=== PATIENT | male | born 1970 | race Caucasian/White ===

== ENCOUNTER 2017-07-14 11:52 | Emergency (ER) | payer BC ==
[2017-07-14] MEDS ORDERED: Sodium Chloride 0.9% 10 ML Syringe FLUSH PRN (13:38)
[2017-07-14] MEDS ORDERED: Aspirin 81 MG Tab.Chew PO ONE (13:38)
--- NOTE | 2017-07-14 13:54 | EDM.PDOC ---
ED HPI GENERAL MEDICAL PROBLEM - General Chief Complaint: Chest Pain Stated Complaint: CHEST PAIN OFF & ON (NEW MED?) Time Seen by Provider: 07/14/17 13:20 Source of Information: Reports: Patient, Family History Limitations: Reports: No Limitations - History of Present Illness INITIAL COMMENTS - FREE TEXT/NARRATIVE: Chip presents today with complaints of intermittent left sided chest pain since start of propranolol July. He reports diaphroesis , nausea with the dull and tight type pain. He also reports he develops soreness to his neck at times with it. - Related Data Allergies Allergy/AdvReac Type Severity Reaction Status Date / Time No Known Allergies Allergy Verified 07/14/17 12:57 Home Meds: Home Meds Levothyroxine 50 mcg PO DAILY 06/09/16 [History] Sertraline [Zoloft] 150 mg PO DAILY 06/09/16 [History] Testosterone Enanthate [Delatestryl] 600 mg IM ASDIRECTED 06/09/16 [History] buPROPion HCl [Wellbutrin SR] 150 mg PO BID 06/09/16 [History] Propranolol HCl [Propranolol HCl] 2 tab PO BID 07/14/17 [History] Past Medical History HEENT History: Reports: Hard of Hearing Respiratory History: Reports: Asthma Other Respiratory History: pneumonia Gastrointestinal History: Reports: Other (See Below) Other Gastrointestinal History: blood in stool Musculoskeletal History: Reports: Arthritis, Fracture Psychiatric History: Reports: Anxiety, Depression Endocrine/Metabolic History: Reports: Diabetes, Type II, Hypothyroidism, Other ( See Below) Other Endocrine/Metabolic History: Catalino's disease Immunologic History: Reports: Other (See Below) Other Immunologic History: catalino's disease Dermatologic History: Reports: Other (See Below) Other Dermatologic History: hidradenitis suppurativa-currently in remission - Infectious Disease History Infectious Disease History: Reports: Chicken Pox 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 - Past Surgical History HEENT Surgical History: Reports: Myringotomy w Tube(s), Tonsillectomy Social & Family History - Tobacco Use Smoking Status *Q: Never Smoker Years of Tobacco use: 30 Packs/Tins Daily: 0.5 Second Hand Smoke Exposure: No - Alcohol Use Days Per Week of Alcohol Use: 5 Number of Drinks Per Day: 6 Total Drinks Per Week: 30 - Recreational Drug Use Recreational Drug Use: Yes Drug Use in Last 12 Months: Yes Recreational Drug Type: Reports: Marijuana/Hashish Recreational Drug Use Frequency: Socially ED ROS GENERAL - Review of Systems Review Of Systems: See Below Constitutional: Reports: Diaphoresis. Denies: Fever, Chills, Malaise, Weakness HEENT: Reports: No Symptoms Respiratory: Reports: Shortness of Breath. Denies: Wheezing, Cough, Sputum, Hemoptysis Cardiovascular: Reports: Chest Pain, Dyspnea on Exertion. Denies: Blood Pressure Problem, Edema, Lightheadedness, Orthopnea, Palpitations, PND, Syncope Endocrine: Reports: No Symptoms GI/Abdominal: Reports: No Symptoms : Reports: No Symptoms Musculoskeletal: Reports: Neck Pain, Other (intermittently with chest pain) Skin: Reports: No Symptoms Neurological: Reports: No Symptoms Psychiatric: Reports: No Symptoms Hematologic/Lymphatic: Reports: No Symptoms Immunologic: Reports: No Symptoms ED EXAM, GENERAL - Physical Exam Exam: See Below Free Text/Narrative:: Chip is an alert, oriented and pleasant 47 year old male presenting with intermittent chest pain since the start of propranolol 40mg PO BID 48 hours ago. Pain is tight, dull and to left chest accompanied by diaphroesis, nausea and sore neck. He has not taken any aspirin. History of essential tremor, diabetes mellitus type two, Catalino, use of testosterone IM. Daily caffeine use of 2 or more diet mountain dew, energy drink or coffee. Exam Limited By: No Limitations General Appearance: Alert, WD/WN, Mild Distress Eye Exam: Bilateral Eye: EOMI, Normal Inspection, PERRL Ears: Normal External Exam, Normal Canal, Hearing Grossly Normal, Normal TMs Ear Exam: Bilateral Ear: Auricle Normal, Canal Normal, TM normal Nose: Normal Inspection, Normal Mucosa, No Blood Throat/Mouth: Normal Inspection, Normal Lips, Normal Oropharynx, Normal Voice, No Airway Compromise Head: Atraumatic, Normocephalic Neck: Normal Inspection, Supple, Non-Tender, Full Range of Motion. No: Lymphadenopathy (R), Lymphadenopathy (L) Respiratory/Chest: No Respiratory Distress, Lungs Clear, Normal Breath Sounds, No Accessory Muscle Use, Chest Non-Tender Cardiovascular: Normal Peripheral Pulses, Regular Rate, Rhythm, No Edema, No Murmur, Other (EKG Sinus Frequent PVCs without pattern) Peripheral Pulses: 2+: Carotid (L), Carotid (R), Radial (L), Radial (R), Dorsalis Pedis (L), Dorsalis Pedis (R) GI/Abdominal: Normal Bowel Sounds, Soft, Non-Tender, No Distention, No Mass Back Exam: Normal Inspection, Full Range of Motion. No: CVA Tenderness (R), CVA Tenderness (L) Extremities: Normal Inspection, Normal Range of Motion, Non-Tender, No Pedal Edema, Normal Capillary Refill Neurological: Alert, Oriented, CN II-XII Intact, Normal Cognition, Normal Gait, Normal Reflexes, No Motor/Sensory Deficits Psychiatric: Normal Affect, Normal Mood Skin Exam: Warm, No Rash, Diaphoretic, Other (Flushed to head, chest, upper arms ) Lymphatic: No Adenopathy Course - Vital Signs Last Recorded V/S: Last Vital Signs Temp 36.9 C 07/14/17 12:50 Pulse 64 07/14/17 13:50 Resp 14 07/14/17 13:20 BP 127/75 07/14/17 13:50 Pulse Ox 96 07/14/17 13:50 - Orders/Labs/Meds Orders: Active Orders 24 hr Category Date Time Status EKG Documentation Completion [RC] ASDIRECTED Care 07/14/17 13:20 Active Chest 2V [CR] Stat Exams 07/14/17 13:39 Taken Sodium Chloride 0.9% [Saline Flush] Med 07/14/17 13:38 Active 10 ml FLUSH ASDIRECTED PRN Saline Lock Insert [OM.PC] Routine Oth 07/14/17 13:38 Ordered EKG 12 Lead [EK] Routine Ther 07/14/17 13:20 Ordered Medication Orders Sodium Chloride (Saline Flush) 10 ml FLUSH ASDIRECTED PRN PRN Reason: Keep Vein Open Last Admin: 07/14/17 14:02 Dose: 10 ml Labs: Laboratory Tests 07/14/17 07/14/17 07/14/17 Range/Units 13:49 13:49 13:49 WBC 6.6 (4.5-11.0) K/uL RBC 5.32 (4.30-5.90) M/uL Hgb 16.6 H (12.0-15.0) g/dL Hct 48.7 (40.0-54.0) % MCV 92 (80-98) fL MCH 31 (27-31) pg MCHC 34 (32-36) % Plt Count 221 (150-400) K/uL Neut % (Auto) 66 (36-66) % Lymph % (Auto) 22 L (24-44) % [place] % (Auto) 10 H (2-6) % Eos % (Auto) 2 (2-4) % Baso % (Auto) 0 (0-1) % Sodium 140 (140-148) mmol/L Potassium 4.3 (3.6-5.2) mmol/L Chloride 107 (100-108) mmol/L Carbon Dioxide 27 (21-32) mmol/L Anion Gap 6.5 (5.0-14.0) mmol/L BUN 24 H (7-18) mg/dL Creatinine 1.2 (0.8-1.3) mg/dL Est Cr Clr Drug Dosing 82.63 mL/min Estimated GFR (MDRD) > 60 (>60) Glucose 111 H (74-106) mg/dL Calcium 8.6 (8.5-10.1) mg/dL Total Bilirubin 0.2 (0.2-1.0) mg/dL AST 33 (15-37) U/L ALT 70 (12-78) U/L Alkaline Phosphatase 84 (46-116) U/L Troponin I < 0.017 (0.000-0.056) ng/mL Total Protein 7.1 (6.4-8.2) g/dL Albumin 3.7 (3.4-5.0) g/dL Globulin 3.4 (2.3-3.5) g/dL Albumin/Globulin Ratio 1.1 L (1.2-2.2) TSH, Ultra Sensitive 2.278 (0.358-3.740) uIU/mL Lab work reviewed. Meds: Medications Generic Name Dose Route Start Last Admin Trade Name Freq PRN Reason Stop Dose Admin Sodium Chloride 10 ml 07/14/17 13:38 07/14/17 14:02 Saline Flush FLUSH 10 ml ASDIRECTED PRN Administration Keep Vein Open Discontinued Medications Generic Name Dose Route Start Last Admin Trade Name Freq PRN Reason Stop Dose Admin Aspirin 324 mg 07/14/17 13:38 07/14/17 13:58 Aspirin PO 07/14/17 13:39 324 mg ONETIME ONE Administration - Radiology Interpretation Free Text/Narrative:: Chest x-ray wet read, no acute findings. Radiologist read pending. - Re-Assessments/Exams Free Text/Narrative Re-Assessment/Exam: 07/14/17 15:15 Patient case, lab work and EKG findings reviewed with Dr. Mccord. Patient will be discharged to home with follow up to his primary provider on Sunday. Patient and in agreement with plan. Departure - Departure Time of Disposition: 15:22 Disposition: Home, Self-Care 01 Condition: Good Clinical Impression: Atypical chest pain, Medication side effect Referrals: Roberto Diamond PA-C [Primary Care Provider] - Forms: ED Department Discharge Additional Instructions: You have been treated for left sided chest pain in the emergency room today. You have had flushing of the head and chest as well as sweating with these episodes that have occurred with the use of propranalol. All your lab work was negative for cardiac injury or significant finding. EKG and chest x-ray reviewed. EKG was normal sinus with irregular frequent PVCs. Chest x-ray was normal. It would be best for you to stop use of caffeine. Do not discontinue use of propranalol until you see your primary provider on Sunday July 16, 2017. You may take acetaminophen or ibuprofen for pain if needed. Return for worsening, SOB, issues or concerns. It may be in your best interest to complete a stress test in the future. - My Orders Last 24 Hours: My Active Orders 07/14/17 13:20 EKG Documentation Completion [RC] ASDIRECTED EKG 12 Lead [EK] Routine 07/14/17 13:38 Sodium Chloride 0.9% [Saline Flush] 10 ml FLUSH ASDIRECTED PRN Saline Lock Insert [OM.PC] Routine 07/14/17 13:39 Chest 2V [CR] Stat - Assessment/Plan Last 24 Hours: My Active Orders 07/14/17 13:20 EKG Documentation Completion [RC] ASDIRECTED EKG 12 Lead [EK] Routine 07/14/17 13:38 Sodium Chloride 0.9% [Saline Flush] 10 ml FLUSH ASDIRECTED PRN Saline Lock Insert [OM.PC] Routine 07/14/17 13:39 Chest 2V [CR] Stat Assessment:: Atypical chest pain Side effect of medication - propranalol Plan: Patient has been treated for left sided chest pain in the emergency room today. He has had flushing of the head and chest as well as sweating with these episodes that have occurred with the use of propranalol. All lab work was negative for cardiac injury or significant finding. EKG and chest x-ray reviewed. EKG was normal sinus with irregular frequent PVCs. Chest x-ray was normal. It would be best for patient to stop use of caffeine. Do not discontinue use of propranalol until he sees his primary provider on Sunday July 16, 2017. He may take acetaminophen or ibuprofen for pain if needed. Return for worsening, SOB, issues or concerns. It may be in his best interest to complete a stress test in the future.
[2017-07-14 14:15] VITALS: BP 127/75
--- NOTE | 2017-07-16 09:55 | CR ---
Chest 2V INDICATION: chest pain, dyspnea at times. FINDINGS: Ill-defined 18 mm density projected over the posterior right seventh rib is indeterminant. Comparison with any available old outside chest x-rays or noncontrast chest CT recommended. Exam othe rwise negative.
== END 2017-07-14 15:45 | disposition home or self-care (01) ==
LOC: JP.ED 11:52
DX: R07.89 Other chest pain (principal); T44.7X5A Adverse effect of beta-adrenoreceptor antagonists, initial encounter; J45.909 Unspecified asthma, uncomplicated; F32.9 Major depressive disorder, single episode, unspecified; E11.9 Type 2 diabetes mellitus without complications; E03.9 Hypothyroidism, unspecified; Z96.22 Myringotomy tube(s) status; Z98.890 Other specified postprocedural states; Z79.899 Other long term (current) drug therapy
CPT/HCPCS: 36415; 71020; 80053; 84443; 84484; 85025; 93005; 99285; A9270; J7050

== ENCOUNTER 2020-04-16 11:56 | Emergency (ER) | payer BC ==
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
[2020-04-16 12:17] VITALS: BP 142/124; PULSE 71
== END 2020-04-16 13:19 | disposition home or self-care (01) ==
LOC: JP.ED 11:56
DX: F10.129 Alcohol abuse with intoxication, unspecified (principal); J45.909 Unspecified asthma, uncomplicated; M19.90 Unspecified osteoarthritis, unspecified site; F41.9 Anxiety disorder, unspecified; F32.9 Major depressive disorder, single episode, unspecified; E11.9 Type 2 diabetes mellitus without complications; E03.9 Hypothyroidism, unspecified; E06.3 Autoimmune thyroiditis; Z88.8 Allergy status to other drugs, medicaments and biological substances; Z79.899 Other long term (current) drug therapy
CPT/HCPCS: 36415; 80048; 80307; 85025; 99282; 99284

== ENCOUNTER 2020-04-17 04:59 | Emergency (ER) | payer BC ==
[2020-04-17] MEDS ORDERED: ClonazePAM 0.5 MG Tab PO ONE (05:19)
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
[2020-04-17 05:34] VITALS: BP 139/87; PULSE 78
== END 2020-04-17 05:37 | disposition home or self-care (01) ==
LOC: JP.ED 04:59
DX: R07.9 Chest pain, unspecified (principal); G89.29 Other chronic pain; F32.9 Major depressive disorder, single episode, unspecified; E11.9 Type 2 diabetes mellitus without complications; E03.9 Hypothyroidism, unspecified; Z88.8 Allergy status to other drugs, medicaments and biological substances; Z79.899 Other long term (current) drug therapy
CPT/HCPCS: 99285; A9270; 99283

== ENCOUNTER 2021-01-06 10:20 | Emergency (ER) | payer BC ==
--- NOTE | 2021-01-06 11:28 | EDM.PDOC ---
ED HPI GENERAL MEDICAL PROBLEM - General Chief Complaint: Neuro Symptoms/Deficits Stated Complaint: REACTION Time Seen by Provider: 01/06/21 10:50 Source of Information: Reports: Patient History Limitations: Reports: No Limitations - History of Present Illness INITIAL COMMENTS - FREE TEXT/NARRATIVE: 50-year-old male with a chronic myoclonic jerking disorder, no diagnosed seizure disorder per his neurologist. Recently increased Lamictal and the patient feels it is causing him more symptoms. Onset: Unknown/Unsure Associated Symptoms: Reports: No Other Symptoms - Related Data Allergies Allergy/AdvReac Type Severity Reaction Status Date / Time propranolol Allergy Severe Chest Pain Verified 01/06/21 10:28 Home Meds: Home Meds Levothyroxine 50 mcg PO DAILY 06/09/16 [History] Testosterone Enanthate [Delatestryl] 600 mg IM ASDIRECTED 06/09/16 [History] clonazePAM [Clonazepam] 2 mg PO TID 04/16/20 [History] Aspirin [Adult Low Dose Aspirin EC] 81 mg PO DAILY 01/06/21 [History] Sildenafil Citrate [Viagra] 50 - 100 mg PO ASDIRECTED 01/06/21 [History] lamoTRIgine [Lamotrigine] 100 mg PO TID 01/06/21 [History] Past Medical History HEENT History: Reports: Hard of Hearing Other Cardiovascular History: irregular heart rhythm Respiratory History: Reports: Asthma Other Respiratory History: pneumonia Gastrointestinal History: Reports: Other (See Below) Other Gastrointestinal History: blood in stool Musculoskeletal History: Reports: Arthritis, Fracture Neurological History: Reports: Seizure Psychiatric History: Reports: Anxiety, Depression Endocrine/Metabolic History: Reports: Diabetes, Type II, Hypothyroidism, Other (See Below) Other Endocrine/Metabolic History: Americo's disease Immunologic History: Reports: Other (See Below) Other Immunologic History: americo's disease Dermatologic History: Reports: Other (See Below) Other Dermatologic History: hidradenitis suppurativa-currently in remission - Infectious Disease History Infectious Disease History: Reports: Chicken Pox 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 - Past Surgical History HEENT Surgical History: Reports: Myringotomy w Tube(s), Tonsillectomy Social & Family History - Tobacco Use Tobacco Use Status *Q: Former Tobacco User Used Tobacco, but Quit: No - Caffeine Use Caffeine Use: Reports: Energy Drinks - Recreational Drug Use Recreational Drug Use: No Other Recreational Drug Type: uses medical cannabis ED ROS GENERAL - Review of Systems Review Of Systems: See Below Constitutional: Denies: Fever, Chills HEENT: Denies: Vision Change Respiratory: Denies: Shortness of Breath Cardiovascular: Denies: Chest Pain GI/Abdominal: Denies: Nausea, Vomiting Neurological: Denies: Headache, Paresthesia Psychiatric: Reports: Anxiety ED EXAM, GENERAL - Physical Exam Exam: See Below Exam Limited By: No Limitations General Appearance: Alert, Anxious Head: Atraumatic Respiratory/Chest: No Respiratory Distress, Lungs Clear Cardiovascular: Regular Rate, Rhythm. No: Extra Beats Neurological: Alert, Oriented, Other (Frequent nonsymmetric myoclonic jerks with occasional verbal output versus which have no pattern) Psychiatric: Anxious Skin Exam: Warm, Dry Course - Vital Signs Last Recorded V/S: Last Vital Signs Temp Pulse 56 L 01/06/21 12:28 Resp 20 01/06/21 12:28 BP Pulse Ox 98 01/06/21 12:28 - Orders/Labs/Meds Labs: Laboratory Tests 01/06/21 01/06/21 01/06/21 Range/Units 10:34 10:44 10:44 WBC 6.3 (4.5-11.0) K/uL RBC 4.99 (4.30-5.90) M/uL Hgb 15.8 H (12.0-15.0) g/dL Hct 47.7 (40.0-54.0) % MCV 96 (80-98) fL MCH 32 H (27-31) pg MCHC 33 (32-36) % Plt Count 229 (150-400) K/uL Neut % (Auto) 75 H (36-66) % Lymph % (Auto) 20 L (24-44) % [place] % (Auto) 4 (2-6) % Eos % (Auto) 0 L (2-4) % Baso % (Auto) 0 (0-1) % Sodium 143 (140-148) mmol/L Potassium 4.1 (3.6-5.2) mmol/L Chloride 103 (100-108) mmol/L Carbon Dioxide 25 (21-32) mmol/L Anion Gap 15.1 H (5.0-14.0) mmol/L BUN 11 (7-18) mg/dL Creatinine 1.3 (0.8-1.3) mg/dL Est Cr Clr Drug Dosing 73.79 mL/min Estimated GFR (MDRD) 58 L (>60) Glucose 124 H (74-106) mg/dL Calcium 9.4 (8.5-10.1) mg/dL Total Bilirubin 0.4 D (0.2-1.0) mg/dL AST 32 (15-37) U/L ALT 44 (12-78) U/L Alkaline Phosphatase 70 (46-116) U/L Total Protein 7.4 (6.4-8.2) g/dL Albumin 4.4 (3.4-5.0) g/dL Globulin 3.0 (2.3-3.5) g/dL Albumin/Globulin Ratio 1.5 (1.2-2.2) Urine Opiates Screen Negative (NEGATIVE) Ur Oxycodone Screen Negative (NEGATIVE) Urine Methadone Screen Negative (NEGATIVE) Ur Propoxyphene Screen Negative (NEGATIVE) Ur Barbiturates Screen Negative (NEGATIVE) Ur Tricyclics Screen Negative (NEGATIVE) Ur Phencyclidine Scrn Negative (NEGATIVE) Ur Amphetamine Screen Negative (NEGATIVE) U Methamphetamines Scrn Negative (NEGATIVE) Urine MDMA Screen Negative (NEGATIVE) U Benzodiazepines Scrn Negative (NEGATIVE) U Cocaine Metab Screen Negative (NEGATIVE) U Marijuana (THC) Screen Presumptive positive H (NEGATIVE) Ethyl Alcohol mg/dL 01/06/21 Range/Units 10:44 WBC (4.5-11.0) K/uL RBC (4.30-5.90) M/uL Hgb (12.0-15.0) g/dL Hct (40.0-54.0) % MCV (80-98) fL MCH (27-31) pg MCHC (32-36) % Plt Count (150-400) K/uL Neut % (Auto) (36-66) % Lymph % (Auto) (24-44) % [place] % (Auto) (2-6) % Eos % (Auto) (2-4) % Baso % (Auto) (0-1) % Sodium (140-148) mmol/L Potassium (3.6-5.2) mmol/L Chloride (100-108) mmol/L Carbon Dioxide (21-32) mmol/L Anion Gap (5.0-14.0) mmol/L BUN (7-18) mg/dL Creatinine (0.8-1.3) mg/dL Est Cr Clr Drug Dosing mL/min Estimated GFR (MDRD) (>60) Glucose (74-106) mg/dL Calcium (8.5-10.1) mg/dL Total Bilirubin (0.2-1.0) mg/dL AST (15-37) U/L ALT (12-78) U/L Alkaline Phosphatase (46-116) U/L Total Protein (6.4-8.2) g/dL Albumin (3.4-5.0) g/dL Globulin (2.3-3.5) g/dL Albumin/Globulin Ratio (1.2-2.2) Urine Opiates Screen (NEGATIVE) Ur Oxycodone Screen (NEGATIVE) Urine Methadone Screen (NEGATIVE) Ur Propoxyphene Screen (NEGATIVE) Ur Barbiturates Screen (NEGATIVE) Ur Tricyclics Screen (NEGATIVE) Ur Phencyclidine Scrn (NEGATIVE) Ur Amphetamine Screen (NEGATIVE) U Methamphetamines Scrn (NEGATIVE) Urine MDMA Screen (NEGATIVE) U Benzodiazepines Scrn (NEGATIVE) U Cocaine Metab Screen (NEGATIVE) U Marijuana (THC) Screen (NEGATIVE) Ethyl Alcohol < 3 mg/dL - Re-Assessments/Exams Free Text/Narrative Re-Assessment/Exam: 01/06/21 11:42 After a long discussion with his neurologist who knows him well, he recommended decreasing his Lamictal back to his previous dose of 2 pills 3 times a day. He can take some extra Klonopin in the short-term. Patient agreed with the plan and will try that through the weekend and recheck next week if not improving. Departure - Departure Time of Disposition: 11:44 Disposition: Home, Self-Care 01 Clinical Impression: Myoclonic disorder - Discharge Information Instructions: Myoclonus Referrals: PCP,None [Primary Care Provider] - Forms: ED Department Discharge Care Plan Goals: Decrease your lamotrigine as discussed, and try this through the weekend. Contact your provider next week if not improving satisfactorily. Sepsis Event Note (ED) - Focused Exam Vital Signs: Vital Signs Pulse Resp Pulse Ox 01/06/21 12:28 56 L 20 98 01/06/21 12:26 56 L 20 98
[2021-01-06 13:34] VITALS: PULSE 56
== END 2021-01-06 11:43 | disposition home or self-care (01) ==
LOC: JP.ED 10:20
DX: G25.3 Myoclonus (principal)
CPT/HCPCS: 36415; 80053; 80305-QW; 80307; 85025; 99282; 99283

== ENCOUNTER 2021-06-04 12:38 | Emergency (ER) | payer BC ==
[2021-06-04 13:04] VITALS: BP 108/71; PULSE 78
--- NOTE | 2021-06-04 13:36 | EDM.PDOC ---
ED HPI GENERAL MEDICAL PROBLEM - General Chief Complaint: General Stated Complaint: OUT OF MEDICATION Time Seen by Provider: 06/04/21 13:05 Source of Information: Reports: Patient History Limitations: Reports: No Limitations - History of Present Illness INITIAL COMMENTS - FREE TEXT/NARRATIVE: 51 yo presents to the ER with need for a refill on his Clonazepam. He has recently refilled this medication from his PCP and is unable to find the 180 tablets. In review of [place] [facility] physician he has consistently refilled his prescribed amount for the last year without extra refills. He is very anxious with the anticipation of going without medication fro the weekend. He has no other complaints. - Related Data Allergies Allergy/AdvReac Type Severity Reaction Status Date / Time propranolol Allergy Severe Chest Pain Verified 06/04/21 12:57 Home Meds: Home Meds Testosterone Enanthate [Delatestryl] 600 mg IM ASDIRECTED 06/09/16 [History] clonazePAM [Clonazepam] 2 mg PO TID 04/16/20 [History] Aspirin [Adult Low Dose Aspirin EC] 81 mg PO DAILY 01/06/21 [History] Sildenafil Citrate [Viagra] 50 - 100 mg PO ASDIRECTED 01/06/21 [History] lamoTRIgine [Lamotrigine] 75 mg PO TID 01/06/21 [History] Past Medical History HEENT History: Reports: Hard of Hearing Cardiovascular History: Reports: Arrhythmia Other Cardiovascular History: irregular heart rhythm Respiratory History: Reports: Asthma Other Respiratory History: pneumonia Gastrointestinal History: Reports: Other (See Below) Other Gastrointestinal History: blood in stool Musculoskeletal History: Reports: Arthritis, Fracture Neurological History: Reports: Seizure Psychiatric History: Reports: Anxiety, Depression Endocrine/Metabolic History: Reports: Diabetes, Type II, Hypothyroidism, Other (See Below) Other Endocrine/Metabolic History: Americo's disease, low testosterone Immunologic History: Reports: Other (See Below) Other Immunologic History: americo's disease Dermatologic History: Reports: Other (See Below) Other Dermatologic History: hidradenitis suppurativa-currently in remission - Infectious Disease History Infectious Disease History: Reports: Chicken Pox 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 - Past Surgical History HEENT Surgical History: Reports: Myringotomy w Tube(s), Tonsillectomy Social & Family History - Tobacco Use Tobacco Use Status *Q: Light Tobacco User Years of Tobacco use: 30 Packs/Tins Daily: 0.5 - Caffeine Use Caffeine Use: Reports: Coffee - Recreational Drug Use Recreational Drug Use: No ED ROS GENERAL - Review of Systems Review Of Systems: See Below Constitutional: Denies: Fever Respiratory: Denies: Shortness of Breath Cardiovascular: Denies: Chest Pain ED EXAM, GENERAL - Physical Exam Exam: See Below Exam Limited By: No Limitations General Appearance: Alert, WD/WN, No Apparent Distress Head: Atraumatic, Normocephalic Respiratory/Chest: No Respiratory Distress Psychiatric: Normal Affect, Anxious Course - Vital Signs Last Recorded V/S: Last Vital Signs Temp 36.7 C 06/04/21 13:13 Pulse 78 06/04/21 13:13 Resp 16 06/04/21 13:13 BP 108/71 06/04/21 13:13 Pulse Ox 97 06/04/21 13:13 Departure - Departure Time of Disposition: 13:35 Disposition: Home, Self-Care 01 Condition: Good Clinical Impression: Myoclonic disorder - Discharge Information *PRESCRIPTION DRUG MONITORING PROGRAM REVIEWED*: Not Applicable *COPY OF PRESCRIPTION DRUG MONITORING REPORT IN PATIENT HUNTER: Not Applicable Referrals: Jeromy Sen MD [Primary Care Provider] - Forms: ED Department Discharge Additional Instructions: emergency refill of clonazepam follow-up with your primary care provider on Sunday morning Sepsis Event Note (ED) - Evaluation Sepsis Screening Result: No Definite Risk - Focused Exam Vital Signs: Vital Signs Temp Pulse Resp BP Pulse Ox 06/04/21 13:13 36.7 C 78 16 108/71 97 06/04/21 13:02 36.7 C 78 16 108/71 97
== END 2021-06-04 13:47 | disposition home or self-care (01) ==
LOC: JP.ED 12:38
DX: G25.3 Myoclonus (principal); J45.909 Unspecified asthma, uncomplicated; M19.90 Unspecified osteoarthritis, unspecified site; E11.9 Type 2 diabetes mellitus without complications; Z72.0 Tobacco use; Z88.8 Allergy status to other drugs, medicaments and biological substances; Z79.82 Long term (current) use of aspirin; Z79.899 Other long term (current) drug therapy
CPT/HCPCS: 99281

== ENCOUNTER 2024-07-07 16:02 | Emergency (ER) | payer BC, MEDICAID ==
[2024-07-07 17:16] LABS: BASOPHILS ABSOLUTE AUTO 0.03 K/uL (0.00-0.10); BASOPHILS PERCENT AUTO 0.3 % (0.1-1.3); EOSINOPHILS ABSOLUTE AUTO 0.03 K/uL (0.00-0.40); EOSINOPHILS PERCENT AUTO 0.3 % (0.0-5.4); HEMATOCRIT 39.6 % (38.4-49.7); HEMOGLOBIN 14.1 g/dL (12.9-16.9); IMMATURE GRAN ABSOLUTE AUTO 0.04 K/uL (0.00-0.23); IMMATURE GRAN PERCENT AUTO 0.4 % (0.0-0.7); LYMPHOCYTES PERCENT AUTO 17.4 % (11.4-47.7); MEAN CORPUSCULAR HEMOGLOBIN 31.3 pg (31.6-35.5); MEAN CORPUSCULAR HGB CONC 35.6 g/dL (31.6-35.5); MONOCYTES ABSOLUTE AUTO 0.54 K/uL (0.20-0.90); MONOCYTES PERCENT AUTO 5.9 % (3.3-12.6); NEUTROPHILS ABSOLUTE AUTO 6.98 K/uL (1.0-7.6); NEUTROPHILS PERCENT AUTO 75.7 % (40.0-78.1); PLATELET COUNT,PLT 232 K/uL (130-375); WHITE BLOOD CELL COUNT,WBC 9.2 K/uL (3.2-11.0)
[2024-07-07 17:40] LABS: A/G RATIO 1.2 (1.2-2.2); ALANINE AMINOTRANSFERASE,ALT 50 U/L (12-78); ALBUMIN 3.9 g/dL (3.4-5.0); ALKALINE PHOSPHATASE 72 U/L (46-116); ASPARTATE AMNIOTRANSFERASE,AST 26 U/L (15-37); BILIRUBIN TOTAL 0.7 mg/dL (0.2-1.0); BLOOD UREA NITROGEN,BUN 8 mg/dL (7-18); CALCIUM 8.8 mg/dL (8.5-10.1); CARBON DIOXIDE,CO2 19 mmol/L (21-32); CHLORIDE,CL 95 mmol/L (100-108); CREATININE 1.1 mg/dL (0.8-1.3); ESTIMATED GFR 79 mL/min (>60); GLUCOSE RANDOM 89 mg/dL (74-106); POTASSIUM,K 3.9 mmol/L (3.6-5.2); PROTEIN TOTAL,TP 7.1 g/dL (6.4-8.2); SODIUM,NA 131 mmol/L (140-148)
[2024-07-07 17:41] LABS: ACETAMINOPHEN < 0.0 ug/mL (10.0-144.9); ANION GAP 20.9 mmol/L (5.0-14.0)
[2024-07-07 18:37] LABS: AMPHETAMINES SCREEN, URINE NEGATIVE (NEGATIVE); BARBITURATE SCREEN,URINE NEGATIVE (NEGATIVE); BENZODIAZEPINES SCREEN,URINE NEGATIVE (NEGATIVE); METHADONE SCREEN, URINE NEGATIVE (NEGATIVE); METHAMPHETAMINES SCREEN, URINE NEGATIVE (NEGATIVE); OXYCODONE SCREEN,URINE NEGATIVE (NEGATIVE); PROPOXYPHENE SCREEN,URINE NEGATIVE (NEGATIVE); THC SCREEN,URINE 50 NG/ML PRESUMPTIVE POSITIVE (NEGATIVE)
[2024-07-07 20:02] VITALS: BP 121/71; PULSE 81
== END 2024-07-07 21:42 | disposition home or self-care (01) ==
LOC: JP.ED 16:02
DX: Z00.8 Encounter for other general examination (principal); E11.9 Type 2 diabetes mellitus without complications; Z79.82 Long term (current) use of aspirin; Z79.899 Other long term (current) drug therapy; Z88.8 Allergy status to other drugs, medicaments and biological substances
CPT/HCPCS: 36415; 70450; 80053; 80143; 80179; 80305-QW; 80307; 85025; 99285